=== PATIENT | male | born 1980 | race Caucasian/White ===

== ENCOUNTER 2018-12-17 07:21 | Observation (INO) | payer OTHER ==
[2018-12-14 17:32] VITALS: BMI 29.3
[~2018-12-17] VITALS: Ht 175.3 cm; Wt 90.3 kg
[2018-12-17] VITALS (18 sets, daily range): BP systolic 99–128; BP diastolic 44–78; PULSE 82–118; RESP 11–20; Ht 175.3 cm; Wt 90.3 kg
[~2018-12-17 07:21] MED LIST: DESFLURANE 15 MIN ONE; ROCURONIUM 50 MG INJ ONE; SUCCINYLCHOLINE CHLORIDE 100 MG/5 ML SYG IV ONE
[2018-12-17] MEDS ORDERED: DULO60CA6 PO (07:52)
[2018-12-17] MEDS ORDERED: LISI10TA2 PO (07:52)
[2018-12-17] MEDS ORDERED: LACTATED RINGER'S 1,000 ML IV* ONE (08:00)
[2018-12-17] MEDS ORDERED: CEFAZOLIN 2 GM/50 ML (PMX) 50 ML IVPB SCH (08:00)
--- NOTE | 2018-12-17 10:39 | HPN ---
Date/Time of Note Date/Time of Note DATE: 12/17/18 TIME: 10:39 Interval H&P Admission Note Pt. seen H&P reviewed: No system changes BRYN PADILLA MD Dec 17, 2018 10:39
[2018-12-17] MEDS ORDERED: MIDAZOLAM 1 MG/ML 2 ML INJ ONE (10:43)
--- NOTE | 2018-12-17 11:11 | PREAC ---
Date/Time of Note Date/Time of Note DATE: 12/17/18 TIME: 11:10 Anesthesia Eval and Record Evaluation Time Pre-Procedure Interview DATE: 12/17/18 TIME: 11:10 Age 38 Sex male NPO: 8 hrs Preoperative diagnosis disk herniation Planned procedure [id number] microdiscectomy Past Medical History Past Medical History: Includes Cardio: HTN Surgery & Anesthesia Issues No known issue Meds Anticoagulation: No Beta Shantel within 24 hr: No Reason Beta Shantel not given: Pt. not on B-Shantel Reported Medications Duloxetine Hcl* (Cymbalta*) 60 Mg Capsule.dr, 60 MG PO QHS, CAP 12/17/18 Lisinopril* (Lisinopril*) 10 Mg Tablet, 10 MG PO DAILY, #30 TAB 12/17/18 Current Medications Cefazolin Sodium/ Dextrose 50 ml @ 100 mls/hr PRE-OP IVPB ; Start 12/17/18 at 08:00; Stop 12/17/18 at 15:00 Meds reviewed: Yes Allergies Coded Allergies: No Known Allergy (Unverified , 12/17/18) Allergies Reviewed: Yes Labs/Studies Labs Reviewed: Reviewed by anesthesiologist Blood Bank Test 12/17/18 09:32 Antibody Screen NEGATIVE Blood Type O POSITIVE test: N/A Pre-procedure Exam Last vitals Vital Signs Date Temp Pulse Resp B/P (MAP) Pulse Ox O2 O2 Flow FiO2 Time Delivery Rate 12/17/18 98.1 82 16 128/78 99 09:05 (95) Airway: Adequate mouth opening, Adequate thyromental dist Mallampati: Mallampati IV Teeth: Normal Lung: Normal Heart: Normal ASA Physical Status ASA physical status: 2 Emergency: None Pre-operative Attestations Prior to commencing anesthesia and surgery, the patient was re-evaluated, there was verification of: *The patient's identity *The results of appropriate recent lab work and preoperative vital signs *The above evaluation not changing prior to induction *Anesthetic plan, risk benefits, alternative and complications discussed with patient/family; questions answered; patient/family understands, accepts and wishes to proceed. TIFFANI SANDERS DO Dec 17, 2018 11:11
[2018-12-17] MEDS ORDERED: BUPIVACAINE 0.5%/EPI (SDV) 30 ML INJ ONE (11:21)
[2018-12-17] MEDS ORDERED: GELATIN SIZE 100 SPONGE ONE (11:21)
[2018-12-17] MEDS ORDERED: THROMBIN 5000 UNIT VIAL ONE ×4 (11:21→16:24)
[2018-12-17] MEDS ORDERED: POLYMYXIN/BACITRACIN 1L IRRIG ONE (11:22)
[2018-12-17] MEDS ORDERED: hydrALAzine 20 MG INJ IV PRN (11:30)
[2018-12-17] MEDS ORDERED: LABETALOL HCL 20MG INJ IV PRN (11:30)
[2018-12-17] MEDS ORDERED: LORAZEPAM 2 MG INJ IV PRN (11:30)
[2018-12-17] MEDS ORDERED: MEPERIDINE 25 MG INJ IV PRN (11:30)
[2018-12-17] MEDS ORDERED: HYDROmorphONE 1 MG/5 ML IV SYRINGE IV PRN (11:30)
[2018-12-17] MEDS ORDERED: ONDANSETRON 4 MG INJ IV PRN ×2 (11:30→17:00)
[2018-12-17] MEDS ORDERED: CEFAZOLIN 1 GM INJ ONE (11:56)
[2018-12-17] MEDS ORDERED: ONDANSETRON 4 MG INJ ONE (11:59)
[2018-12-17] MEDS ORDERED: DEXAMETHASONE 4 MG/ML 5 ML INJ ONE (11:59)
[2018-12-17] MEDS ORDERED: HEMOSTATIC MATRIX SYG ZFS ONE ×2 (12:36→14:11)
[2018-12-17] MEDS ORDERED: PHENYLephrine (100 MCG/ML) 10ML SYG ONE (13:00)
[2018-12-17] MEDS ORDERED: FENTAnyl 50 MCG/ML VIAL ONE (14:49)
[2018-12-17] MEDS ORDERED: LABETALOL HCL 20MG INJ ONE (15:39)
[2018-12-17] MEDS ORDERED: ACETAMINOPHEN 325 MG TAB PO PRN (17:00)
[2018-12-17] MEDS ORDERED: PROCHLORPERAZINE 10 MG TAB PO PRN (17:00)
[2018-12-17] MEDS ORDERED: HYDROmorphONE 0.5 MG/0.5 ML SYG IV PRN (17:00)
[2018-12-17] MEDS ORDERED: HYDROCODONE/APAP (5/325) TAB PO PRN (17:00)
[2018-12-17] MEDS ORDERED: AL HYDROX/MG HYDROX/SIMETH 30 ML CUP PO PRN (17:00)
[2018-12-17] MEDS ORDERED: NACL 0.9% 3 ML SYG IV SCH (17:00)
[2018-12-17] MEDS ORDERED: CYCLOBENZAPRINE 10 MG TAB PO PRN (17:00)
[2018-12-17] MEDS ORDERED: NALOXONE (0.4 MG/ML) INJ IV PRN (17:00)
--- NOTE | 2018-12-17 17:13 | PAC ---
Date/Time of Note Date/Time of Note DATE: 12/17/18 TIME: 17:12 Post-Anesthesia Notes Post-Anesthesia Note Last documented vital signs Vital Signs Date Temp Pulse Resp B/P (MAP) Pulse Ox O2 O2 Flow FiO2 Time Delivery Rate 12/17/18 98.8 105 20 120/50 100 17:12 12/17/18 82 16 128/78 99 09:05 (95) Activity: WNL Respiratory function: WNL Cardiovascular function: WNL Mental status: Baseline Pain reasonably controlled: Yes Hydration appropriate: Yes Nausea/Vomiting absent: Yes TIFFANI SANDERS DO Dec 17, 2018 17:13
--- NOTE | 2018-12-17 17:15 | OPR ---
Date/Time of Note Date/Time of Note DATE: 12/17/18 TIME: 17:00 Operative Report Free Text/Dictation DATE OF OPERATION: 12/17/2018 PREOPERATIVE DIAGNOSES: 1 Left Sided L3-4 spinal stenosis w/ radiculopathy 2. Left sided L3-4 Herniated nucleus pulposis w/ radiculopathy 3 Left Sided L4-5 spinal stenosis w/ radiculopathy 4. Left sided L4-5 Herniated nucleus pulposis w/ radiculopathy 5. Obesity BMI 30 kg/m2 POSTOPERATIVE DIAGNOSES: 1 Left Sided L3-4 spinal stenosis w/ radiculopathy 2. Left sided L3-4 Herniated nucleus pulposis w/ radiculopathy 3 Left Sided L4-5 spinal stenosis w/ radiculopathy 4. Left sided L4-5 Herniated nucleus pulposis w/ radiculopathy 5. Obesity BMI 30 kg/m2 OPERATION PERFORMED: 1. Left sided L3-4 laminectomy, medial facetectomy, and foraminotomy 2. Left sided L3-4 microdiscectomy 3. Left sided L4-5 laminectomy, medial facetectomy, and foraminotomy 4. Left sided L4-5 microdiscectomy SURGEON: Bryn Padilla MD ANESTHESIA: General endotracheal ESTIMATED BLOOD LOSS: 150 mL SURGICAL INDICATION: The patient is a 38 year-old male who presents with a chronic history of worsening left lower extremity pain with weakness. He was found to have a disc herniation and severe spinal stenosis which correlated well with her symptoms. The patient had failed conservative treatment. Risks, benefits, and alternatives to a Left L3-5 sided microdiscectomy and L3-5 left sided decompression were explained to the patient and they wished to proceed. Risks explained included but were not exclusive of bleeding, infection, cauda equina syndrome, nerve injury, dural tear, iatrogenic instability requiring fusion, recurrent disc herniation, fracture, vascular injury, bowel injury, stroke, heart attack and pulmonary embolism. DESCRIPTION OF TECHNIQUE: The patient was identified in the preoperative area and taken to the operating room. Rapid induction of general endotracheal anesthesia was performed. The patient was given 2 g of cefazolin for pr ophylaxis. The patient was then placed in the prone position on the David frame on a Fer flat top table with all prominences well padded. The back was prepped and draped in the usual sterile manner. Using a spinal needle and intraoperative fluoroscopy, the appropriate level was clearly identified (L4- L5). The skin was injected using 0.25% Marcaine with epinephrine. Longitudinal midline incision was then created using a 10 blade. Further dissection through soft tissue was performed using electrocautery down to the spinous processes bilaterally. Dissection was taken down the left L4 lamina and over the facet joint capsule. A self-retaining retractor was applied. Again, intraoperative fluoroscopy confirmed the level. We identified the interlaminar window. The microscope was brought into use for microdissection. The high-speed bur was used to thin the left L4 lamina. Kerrison rongeurs were then used to resect a the lamina, and a portion of the medial facet and the bone overlying the foramen. Ligamentum flavum was also resected using the Kerrison rongeurs. Care was taken to protect the thecal sac throughout the decompressive procedure. The dura and traversing nerve root were both directly visualized. These were retracted gently in a medial direction. Immediately, the extruded disc fragment was noted. The pseudo anulus was incised using an 11 blade. Several loose fragments of disk were removed. These were removed back to a stable portion of the disk. The disk space was further pressurized using a using normal saline through a syringe to ensure that no loose fragments remained behind. Palpation with a ball-tip probe did not reveal any further stenosis in the central, subarticular, or foraminal areas. The left L5 and L4 pedicles were palpated using a gita to ensure a pedicle to pedicle decompression. The exiting L4 nerve root and traversing L5 nerve roots were both directly visualized and noted to be decompressed. The cephalad and caudad extent of the decompression were also confirmed using ball- tip probes and intraoperative fluoroscopy. We then focused our attention on the decompression at L3-L4 level. We extended our incision proximally sing a 10 blade. Further dissection through soft tissue was performed using electrocautery down to the left L3 spinous process bilaterally. Dissection was taken down the left lamina and over the facet joint capsule. A self-retaining retractor was applied. Again, intraoperative fluoroscopy confirmed the level. I identified the interlaminar window. The microscope was brought into use for microdissection. The high-speed bur was used to thin the left L3 lamina. Kerrison rongeurs were then used to resect a the lamina, and a portion of the medial facet and the bone overlying the foramen. Ligamentum flavum was also resected using the Kerrison rongeurs. Care was taken to protect the thecal sac throughout the decompressive procedure. The dura and traversing nerve root were both directly visualized. These were retracted gently in a medial direction. Immediately, the extruded disc fragment was noted. The pseudo anulus was incised using an 11 blade. Several loose fragments of disk were removed. These were removed back to a stable portion of the disk. The disk space was further pressurized using a using normal saline through a syringe to ensure that no loose fragments remained behind. Palpation with a ball-tip probe did not reveal any further stenosis in the central, subarticular, or foraminal areas. The left L3 and L4 pedicles were palpated using a gita to ensure a pedicle to pedicle decompression. The exiting L3 nerve root and traversing L4 nerve root were both directly visualized and noted to be decompressed. The cephalad and caudad extent of the decompression were also confirmed using ball- tip probes and intraoperative fluoroscopy. This case took an additional 45 minutes for dissection and decompression given the patient body habitus (BMI 30 kg/m2). Meticulous attention was then paid towards hemostasis using FloSeal as well as Gelfoam and thrombin. Care was taken to remove all FloSeal and Gelfoam prior to wound closure. The fascia was then closed using 0 Vicryl in an interrupted fashion. Subcutaneous tissue was closed using 2-0 Vicryl in an interrupted fashion after a medium hemovac was placed. The skin was closed using a running 4-0 Monocryl stitch. The wound was dressed using Dermabond and a 4x4 sterile gauze. A subfascial medium hemovac was placed. The patient was returned to the supine position. She was extubated immediately postoperatively and taken to the recovery room in stable condition. COMPLICATIONS: None. Procedure Date: Dec 17, 2018 Preoperative Diagnosis 1 Left Sided L3-4 spinal stenosis w/ radiculopathy 2. Left sided L3-4 Herniated nucleus pulposis w/ radiculopathy 3 Left Sided L4-5 spinal stenosis w/ radiculopathy 4. Left sided L4-5 Herniated nucleus pulposis w/ radiculopathy 5. Obesity BMI 30 kg/m2 Postoperative Diagnosis 1 Left Sided L3-4 spinal stenosis w/ radiculopathy 2. Left sided L3-4 Herniated nucleus pulposis w/ radiculopathy 3 Left Sided L4-5 spinal stenosis w/ radiculopathy 4. Left sided L4-5 Herniated nucleus pulposis w/ radiculopathy 5. Obesity BMI 30 kg/m2 Operation/Procedure Performed 1. Left sided L3-4 laminectomy, medial facetectomy, and foraminotomy 2. Left sided L3-4 microdiscectomy 3. Left sided L4-5 laminectomy, medial facetectomy, and foraminotomy 4. Left sided L4-5 microdiscectomy Surgeon see signature line Senior Label Specialist None Anesthesia Type: general Estimated Blood Loss: 100 - 150 ml's Transfusion none Specimen L3-5 disk Grafts/Implants none Complications none Pt Condition Post Procedure: stable Disposition: PACU Procedure Description DESCRIPTION OF TECHNIQUE: The patient was identified in the preoperative area and taken to the operating room. Rapid induction of general endotracheal anesthesia was performed. The patient was given 2 g of cefazolin for prophylaxis. The patient was then placed in the prone position on the David frame on a Fer flat top table with all prominences well padded. The back was prepped and draped in the usual sterile manner. Using a spinal needle and intraoperative fluoroscopy, the appropriate level was clearly identified (L4- L5). The skin was injected using 0.25% Marcaine with epinephrine. Longitudinal midline incision was then created using a 10 blade. Further dissection through soft tissue was performed using electrocautery down to the spinous processes bilaterally. Dissection was taken down the left L4 lamina and over the facet joint capsule. A self-retaining retractor was applied. Again, intraoperative fluoroscopy confirmed the level. We identified the interlaminar window. The microscope was brought into use for microdissection. The high-speed bur was used to thin the left L4 lamina. Kerrison rongeurs were then used to resect a the lamina, and a portion of the medial facet and the bone overlying the foramen. Ligamentum flavum was also resected using the Kerrison rongeurs. Care was taken to protect the thecal sac throughout the decompressive procedure. The dura and traversing nerve root were both directly visualized. These were retracted gently in a medial direction. Immediately, the extruded disc fragment was noted. The pseudo anulus was incised using an 11 blade. Several loose fragments of disk were removed. These were removed back to a stable portion of the disk. The disk space was further pressurized using a using normal saline through a syringe to ensure that no loose fragments remained behind. Palpation with a ball-tip probe did not reveal any further stenosis in the central, subarticular, or foraminal areas. The left L5 and L4 pedicles were palpated using a gita to ensure a pedicle to pedicle decompression. The exiting L4 nerve root and traversing L5 nerve roots were both directly visualized and noted to be decompressed. The cephalad and caudad extent of the decompression were also confirmed using ball- tip probes and intraoperative fluoroscopy. We then focused our attention on the decompression at L3-L4 level. We extended our incision proximally sing a 10 blade. Further dissection through soft tissue was performed using electrocautery down to the left L3 spinous process bilaterally. Dissection was taken down the left lamina and over the facet joint capsule. A self-retaining retractor was applied. Again, intraoperative fluoroscopy confirmed the level. I identified the interlaminar window. The microscope was brought into use for microdissection. The high-speed bur was used to thin the left L3 lamina. Kerrison rongeurs were then used to resect a the lamina, and a portion of the medial facet and the bone overlying the foramen. Ligamentum flavum was also resected using the Kerrison rongeurs. Care was taken to protect the thecal sac throughout the decompressive procedure. The dura and traversing nerve root were both directly visualized. These were retracted gently in a medial direction. Immediately, the extruded disc fragment was noted. The pseudo anulus was incised using an 11 blade. Several loose fragments of disk were removed. These were removed back to a stable portion of the disk. The disk space was further pressurized using a using normal saline through a syringe to ensure that no loose fragments remained behind. Palpation with a ball-tip probe did not reveal any further stenosis in the central, subarticular, or foraminal areas. The left L3 and L4 pedicles were palpated using a gita to ensure a pedicle to pedicle decompression. The exiting L3 nerve root and traversing L4 nerve root were both directly visualized and noted to be decompressed. The cephalad and caudad extent of the decompression were also confirmed using ball- tip probes and intraoperative fluoroscopy. This case took an additional 45 minutes for dissection and decompression given the patient body habitus (BMI 30 kg/m2). Meticulous attention was then paid towards hemostasis using FloSeal as well as Gelfoam and thrombin. Care was taken to remove all FloSeal and Gelfoam prior to wound closure. The fascia was then closed using 0 Vicryl in an interrupted fashion. Subcutaneous tissue was closed using 2-0 Vicryl in an interrupted fashion after a medium hemovac was placed. The skin was closed using a running 4-0 Monocryl stitch. The wound was dressed using Dermabond and a 4x4 sterile gauze. A subfascial medium hemovac was placed. The patient was returned to the supine position. She was extubated immediately postoperatively and taken to the recovery room in stable condition. COMPLICATIONS: None. BRYN PADILLA MD Dec 17, 2018 17:11
[2018-12-17] MEDS ORDERED: DIPHENHYDRAMINE 50 MG INJ ONE (17:17)
[2018-12-17] MEDS ORDERED: DIPHENHYDRAMINE 50 MG INJ IV PRN (17:30)
[2018-12-17] MEDS: CEFAZOLIN 1 GM/50 ML (PMX) 50 ML IVPB SCH (17:47)
[2018-12-17] MEDS: HYDROmorphONE 1 MG/5 ML IV SYRINGE IV PRN ×2 (17:50→18:04)
[2018-12-17] MEDS: LISINOPRIL 10 MG TAB PO SCH (18:00)
--- NOTE | 2018-12-17 20:30 | CONS ---
DATE OF ADMISSION: 12/17/2018 DATE OF CONSULTATION: 12/17/[address] Black: Thank you very much for allowing me to evaluate the above patient, a 38-year-old male who just underw ent lumbar laminectomy. HISTORICAL EVENTS: As you well know, this patient has had a 2-year history of low back pain and rela jenniffer left leg sciatica. Because of failure to improve with physical therapy, acupuncture and trigger point injections, it was felt that surgical intervention appropriate after undergoing an MRI that rev ealed a left paracentral disk herniation L4-L5 and L5-S1. Presently, he is in recovery and is comfor table, denying cough, wheezing, shortness of breath, nausea, vomiting, abdominal or chest pain. PAST MEDICAL HISTORY: 1. Anxiety. 2. Hypertension. 3. Prior appendectomy. 4. Right knee arthroscopic surgery without history of diabetes or coronary artery disease. ALLERGIES: NONE. SOCIAL HISTORY: He does not drink alcohol, does not smoke. He is single. PHYSICAL EXAMINATION: GENERAL: [place] male in no acute distress. VITAL SIGNS: BP 122/80, pulse 70, respirations were 20, he was afebrile. EYES: Extraocular muscles were full. NOSE, MOUTH, AND THROAT: Normal. NECK: Supple. There was no jugular venous distention, thyroid enlargement or adenopathy. Carotids 2+ bilaterally. LUNGS: Clear. HEART: Rhythm was regular, no murmur. No third or fourth sound. ABDOMEN: Nontender. Liver and spleen were not palpable. No mass or tenderness were noted. EXTREMITIES: No edema. Calves nontender. Pulses 2+. IMPRESSION: 1. Stable postop lumbar back surgery. 2. History of hypertension. Will resume his SAUNDRA inhibitor, follow BP throughout. 3.: We will evaluate daily for signs and symptoms of thromboembolic disease. Dictated By: CHRISTO AVENDANO/SP Conf#: [id number] DID#: [id number]
[2018-12-17] MEDS: D5-NS + KCL 20 MEQ 1,000 ML IV SCH (20:45)
[2018-12-17] MEDS: HYDROCODONE/APAP (5/325) TAB PO PRN (20:46)
[2018-12-17] MEDS ORDERED: DULOXETINE 30 MG CAP DR PO SCH (21:00)
[2018-12-18] VITALS: BP 103/58; PULSE 114; RESP 18
[2018-12-18] MEDS: CEFAZOLIN 1 GM/50 ML (PMX) 50 ML IVPB SCH ×3 (00:36→12:33)
[2018-12-18] MEDS: D5-NS + KCL 20 MEQ 1,000 ML IV SCH ×2 (01:30→08:42)
[2018-12-18] MEDS: HYDROCODONE/APAP (5/325) TAB PO PRN ×3 (01:59→11:36)
[2018-12-18 04:45] VITALS: BP 121/55; PULSE 103; RESP 18
[2018-12-18 07:15] VITALS: BP 136/67; PULSE 101; RESP 19
--- NOTE | 2018-12-18 08:30 | CONS ---
Assessment/Plan Assessment/Plan Assessment/Plan (Daily) 1. Doing very well post op lumbar back surgery 2. BP, controlled 3. Labs rev Consultation Date/Type/Reason Admit Date/Time Dec 17, 2018 at 16:53 Initial Consult Date Date/Time of Note DATE: 12/18/18 TIME: 08:29 Detailed Summary Respiratory: No cough, No shortness of breath Cardiovascular: No chest pain Gastrointestinal: no complaints Genitourinary: other (sl dysuria) Musculoskeletal: back pain (mild without leg radic pain) Exam/Review of Systems Exam Vitals Vital Signs Date Temp Pulse Resp B/P (MAP) Pulse Ox O2 O2 Flow FiO2 Time Delivery Rate 12/18/18 98.4 101 19 136/67 99 07:15 (90) 12/18/18 Room Air 04:45 Nasal Cannula 12/17/18 2.0 18:46 Intake and Output 12/17/18 12/17/18 12/18/18 1515:00 23:00 07:00 IntakeIntake Total 1475 ml OutputOutput Total 600 ml 1330 ml BalanceBalance -600 ml 145 ml Neck: No jvd Respiratory: clear to auscultation Cardiovascular: regular rate and rhythm Gastrointestinal: soft Extremities: No edema, No tenderness Results Result Diagram: 12/18/18 0440 12/18/18 0440 Results 24hrs Laboratory Tests Test 12/18/18 04:40 12/18/18 07:10 Hemoglobin 10.6 L Hematocrit 32.6 L Sodium Level 141 Potassium Level 4.2 Chloride Level 109 Carbon Dioxide Level 26 Anion Gap 6 Blood Urea Nitrogen 9 Creatinine 0.65 Est Glomerular Filtrat Rate mL/min > 60 Glucose Level 134 Calcium Level 8.8 Lab Scanned Report REFERENCE LAB Medications Medication Current Medications Acetaminophen/ Hydrocodone Bitart (Polo (5/325)) 1 tab Q4H PRN PO .PAIN 1-5 Last administered on 12/18/18at 07:24; Admin Dose 1 TAB; Start 12/17/18 at 17:00 Acetaminophen/ Hydrocodone Bitart (Polo (5/325)) 2 tab Q4H PRN PO .PAIN 6-10; Start 12/17/18 at 17:00 Cefazolin Sodium 50 ml @ 100 mls/hr Q6 IVPB Last administered on 12/18/18at 05:45; Admin Dose 100 MLS/HR; Start 12/17/18 at 18:00; Stop 12/18/18 at 12:29 Prochlorperazine (Compazine) 10 mg Q4H PRN PO NAUSEA/VOMITING; Start 12/17/18 at 17:00 Ondansetron HCl (Zofran Inj) 4 mg Q6H PRN IV NAUSEA/VOMITING; Start 12/17/18 at 17:00 Al Hydrox/Mg Hydrox/Simethicone (Mag-Al Plus) 15 ml Q4H PRN PO .CONSTIPATION; Start 12/17/18 at 17:00 Docusate Sodium (Colace) 100 mg BID PO ; Start 12/18/18 at 09:00 Acetaminophen (Tylenol Tab) 650 mg Q4H PRN PO TEMP GREATER THAN 101F OR HERRMANN; Start 12/17/18 at 17:00 IV Flush (NS 3 ml) 3 ml PER PROTOCOL IV ; Start 12/17/18 at 17:00 Naloxone HCl (Narcan) 0.2 mg Q2M PRN IV RR 8 BREATHS/MIN OR LESS; Start 12/17/18 at 17:00 Hydromorphone HCl (Dilaudid) 0.5 mg Q3H PRN IV SEVERE PAIN LEVEL 7-10; Start 12/17/18 at 17:00 Cyclobenzaprine HCl (Flexeril) 10 mg TID PRN PO muscle spasms; Start 12/17/18 at 17:00 Potassium Chloride/Dextrose/ Sod Cl 1,000 ml @ 125 mls/hr Q8H IV Last administered on 12/17/18at 20:45; Admin Dose 125 MLS/HR; Start 12/17/18 at 17:30 Duloxetine HCl (Cymbalta) 60 mg QHS PO Last administered on 12/17/18at 20:46; Admin Dose 60 MG; Start 12/17/18 at 21:00 Lisinopril (Zestril) 10 mg DAILY PO ; Start 12/17/18 at 18:00 CHRISTO BURRELL MD Dec 18, 2018 08:30
[2018-12-18] MEDS: LISINOPRIL 10 MG TAB PO SCH (08:41)
[2018-12-18] MEDS ORDERED: DOCUSATE SODIUM 100 MG CAP PO SCH (09:00)
[2018-12-18] MEDS ORDERED: BALSAM PERU/CASTOR OIL 60 GM TUBE TOP SCH (12:30)
--- NOTE | 2018-12-18 13:05 | PDOCDIS ---
Discharge Instructions CONDITION [id number] Patient Condition: [id number] Good HOME CARE INSTRUCTIONS: [id number] Diet Instructions: [id number] Regular ACTIVITY: [id number] Activity Restrictions: [id number] Avoid heavy lifting Avoid Heavy Housework [id number] Bathing Restrictions: [id number] Shower FOLLOW UP/APPOINTMENTS Follow-up Plan 2 weeks w/ BRYN Matos MD Dec 18, 2018 13:05
== END 2018-12-18 14:28 | disposition home or self-care (01) ==
LOC: SDS 07:21 → MS1 16:53 → SDS 16:53 → MS1 18:36 → UNDOADMOB 23:10 → MS1 23:10
PROVIDERS: ADMIT Orthopaedic Surgery; ATTEND Orthopaedic Surgery
DX: M48.061 Spinal stenosis, lumbar region without neurogenic claudication (principal); M51.16 Intervertebral disc disorders with radiculopathy, lumbar region; E66.9 Obesity, unspecified; Z68.30 Body mass index [BMI] 30.0-30.9, adult; I10 Essential (primary) hypertension; F41.9 Anxiety disorder, unspecified
CPT/HCPCS: 63030; 63035; 72114; 80048; 85014; 85018; 86850; 86900; 86901; 97116; 97161; G0378; J0690; J1100; J1170; J1200; J2250; J2405; J3010; J3480; 88304; J2370